=== PATIENT | male | born 1955 | race Caucasian/White ===

== ENCOUNTER 2018-04-07 10:21 | Day surgery (SDC) | payer BC ==
[2018-04-07] MEDS ORDERED: SODIUM CHLORIDE 0.9% FLUSH 10 ML SOL IV ONE (11:02)
[2018-04-07] MEDS ORDERED: DEXAMETHASONE SOD PHOS PF 10 MG/ML SOL IJ ONE (11:07)
[2018-04-07] MEDS ORDERED: BUPIVACAINE HCL 0.25% MPF 30 ML SOL INFIL ONE (11:07)
[2018-04-07 11:28] VITALS: BP 149/96; PULSE 67; RESP 20; TEMP 97.4; O2SAT 96
== END 2018-04-07 11:48 | disposition home or self-care (01) ==
LOC: SURG 10:21
PROVIDERS: ATTEND Nurse Anesthetist, Certified Registered
DX: M99.51 Intervertebral disc stenosis of neural canal of cervical region (principal); M54.12 Radiculopathy, cervical region
CPT/HCPCS: J1100